=== PATIENT | female | born 1990 | race Asian ===

== ENCOUNTER 2022-03-16 08:16 | Inpatient (IN) ==
[2022-03-16] MEDS ORDERED: OXYTOCIN 30 UNITS/500 ML BAG IV PRN ×2 (08:57→13:16)
[2022-03-16] MEDS ORDERED: LIDOCAINE 1% LOCAL 20 ML VIAL INFIL PRN (08:57)
--- NOTE | 2022-03-16 09:03 | History & Physical Report ---
Date of Service March 16, 2022 Assessment & Plan (1) Gestational diabetes mellitus (GDM) affecting , antepartum: (2) Normal labor: Plan Plan admission, desires epidural. fetus category one. likely will need arom. anticipate . History of Present Illness Primary Care Provider: NO PCP Patient is a 31yowf with iup at 40 1/7 weeks who presents to labor and delivery from contractions at 3am. Some light bleeding, no lof. NOtes +fm and Delivery Plans Flu shot given 12/21/21 SB Covid booster in Jan GDM w/28wk glucola *Begin monthly Growth US's 03/20 IOL if needed OB Labs: Blood Type O Positive 08/08/21 Antibody Screen NEGATIVE 08/08/21 Hemoglobin 12.0 g/dl (12.0-16.0) 12/21/21 Hematocrit 36.0 % (34.1-44.9) 12/21/21 Mean Corpuscular Volume 92.9 fL (80-100) 08/08/21 Platelet Count 282 K/uL (130-400) 08/08/21 Rubella IgG Antibody Immune (Immune) 08/08/21 Rapid Plasma Reagin Nonreactive (Nonreactive) 08/08/21 Hepatitis B Surface Antigen. NON-REACTIVE (NON-REACTIVE) 08/08/21 Hepatitis C Antibody (EIA) NON-REACTIVE (NON-REACTIVE) 08/08/21 HIV (1&2) Ag and Ab Confirmation NON-REACTIVE (NON-REACTIVE) 08/08/21 Glucose 1 Hour 50 gm Load 174 mg/dl (70-130) H 12/21/21 OB Optional Labs: Chlamydia trachomatis RNA NOT DETECTED (NOT DETECTED) 08/08/21 A Neisseria gonorrhoeae RNA NOT DETECTED (NOT DETECTED) 08/08/21 Labs Reviewed: low risk panorama declined afp gbs neg Allergies Allergy/AdvReac Type Severity Reaction Status Date / Time No Known Allergies Allergy Verified 03/14/22 11:24 Home Medications Medication Instructions Recorded Confirmed Type prenat.vits,thong,vye-ryvu-ovvnm 1 tab PO DAILY 07/28/21 03/16/22 History acetone (urine) test (Ketone Urine #50 ea 12/28/21 03/14/22 Rx Test strips) blood sugar diagnostic (OneTouch #150 ea 12/28/21 03/14/22 Rx Verio test strips) blood-glucose meter (OneTouch #1 ea 12/28/21 03/14/22 Rx Verio Reflect Meter) lancets 33 gauge (OneTouch Delica #150 ea 12/28/21 03/14/22 Rx Lancets) Patient History Medical History Diabetes mellitus affecting Diet controlled. Patient denies significant medical history Surgical History No history of previous surgery Family History Denies family history of Ovarian cancer Breast cancer Colorectal cancer Social History Smoking Status: Never smoker marital status: marital status details: Aric Cisse (35) [phone] Current Living Situation: Spouse and Family Current Living Situation Comment: lives with spouse, daughter current occupational status: unemployed current occupation: homemaker OB History Past Pregnancies Del. Date GA wks Lbr Lgth wt Sex Type del Anes Place Del Prov ? Comment 06/09/19 41 12 8-4 F None Other [place] No [employer] History noncontributory Physical Exam Constitutional: WD/WN, vitals as above Cardiovascular: Extremities: no calf tenderness and no edema Gastrointestinal (Abdomen): soft, nt, nd, gravid Psychiatric: A+Ox3, euthymic affect Genitourinary: cx--5/100/-2 toco--q5-6min efm--120 with mod variability, no accels, no decels Results & Data ([facility]) Vital Signs (Past 12 Hours) Vital Signs Temp Pulse Resp BP 03/16/22 08:23 16 03/16/22 08:23 36.8 C 83 16 121/74 03/16/22 08:22 83 121/74 Coding Level of Care Code None Diagnoses Gestational diabetes mellitus (GDM) affecting , antepartum O24.419 Normal labor O80; Z37.9
[2022-03-16] MEDS: LACTATED RINGER'S 1,000 ML IV PRN ×2 (09:15→10:54)
[2022-03-16 09:49] LABS: Hemoglobin 11.9 g/dl (12.0-16.0); Mean Corpuscular Volume 94.1 fL (80.0-100.0); Mean Platelet Volume 9.3 fL (9.4-12.3); Platelet Count 212 K/uL (130-400); RDW Coefficient of Variation 12.7 % (11.5-14.5); RDW Standard Deviation 43.7 fL (36.4-46.3); Red Blood Count 3.72 M/uL (3.93-5.22); White Blood Count 9.24 K/ul (4.8-10.8)
[2022-03-16] MEDS ORDERED: ePHEDrine sulfate 50 MG/ML AMP ONE (09:49)
[2022-03-16] MEDS ORDERED: SODIUM CHLORIDE 0.9% INJ 10 ML VIAL ONE (09:50)
[2022-03-16] MEDS ORDERED: BUPIVACAINE 0.25% 30 ML VIAL ONE (09:50)
[2022-03-16] MEDS ORDERED: LIDOCAINE 2%/EPINEPHRINE 1:200,000 20 ML SDV ONE (09:50)
[2022-03-16] MEDS ORDERED: fentaNYL citrate 100 MCG/2 ML VIAL ONE (09:50)
[2022-03-16] MEDS ORDERED: fentaNYL 2MCG/ML ROPIVACAINE 1.25MG/ML 100 ML BAG EPI ONE (09:51)
[2022-03-16] MEDS ORDERED: ePHEDrine sulfate 50 MG/ML AMP IV PRN (10:04)
[2022-03-16] MEDS ORDERED: diphenhydrAMINE 50 MG/ML VIAL IV PRN (10:04)
[2022-03-16] MEDS ORDERED: fentaNYL 2MCG/ML ROPIVACAINE 1.25MG/ML 100 ML BAG EPI PRN (10:04)
[2022-03-16] MEDS ORDERED: NALBUPHINE HCL INJ 10 MG/ML AMP IV PRN (10:04)
[2022-03-16] MEDS ORDERED: ONDANSETRON INJ 2 MG/ML 2 ML VIAL IV PRN (10:04)
[2022-03-16] MEDS ORDERED: NALOXONE HCL 0.4 MG/1 ML VIAL/CARP IV PRN (10:04)
[2022-03-16] MEDS ORDERED: NALOXONE HCL 1 MG in SODIUM CHLORIDE 0.9% 1000ML 1,000 ML IV PRN (10:04)
--- NOTE | 2022-03-16 10:04 | Anesthesiology Consultation ---
Date of Service March 16, 2022 Assessment & Plan ASA ASA2 Proposed Anesthesia Anesthesia Type: Labor Epidural Risk / Benefits Reviewed With: PT / POA / Parent / Guardian, Accepts Plan and Informed Consent Obtained History Height/Weight Height: 5 ft 0.06 in Weight: 65.317 kg Allergies Allergy/AdvReac Type Severity Reaction Status Date / Time No Known Allergies Allergy Verified 03/14/22 11:24 Medications Home Medications Medication Instructions Recorded Confirmed Last Taken prenat.vits,thong,sks-kbhy-dbwev 1 tab PO DAILY 07/28/21 03/16/22 03/16/22 07:00 acetone (urine) test (Ketone Urine #50 ea 12/28/21 03/14/22 Unknown Test strips) blood sugar diagnostic (OneTouch #150 ea 12/28/21 03/14/22 Unknown Verio test strips) blood-glucose meter (OneTouch #1 ea 12/28/21 03/14/22 Unknown Verio Reflect Meter) lancets 33 gauge (OneTouch Delica #150 ea 12/28/21 03/14/22 Unknown Lancets) Active Medications Generic Name Dose Route Start Last Admin Trade Name Freq PRN Reason Stop Dose Admin Lactated Ringer's 1,000 mls @ 125 mls/hr 03/16/22 08:57 03/16/22 10:54 Lr IV 03/18/22 08:56 999 mls/hr .Q8H PRN Administration L&D Protocol Protocol Past Medical History Medical History Diabetes mellitus affecting Diet controlled. Patient denies significant medical history Exercise / Class Metabolic Activity II 4-5 Yardwork/Stairs/Walk up hill Past Family History Family History Denies family history of Ovarian cancer Breast cancer Colorectal cancer Past Surgical History Surgical History No history of previous surgery Past Anesthesia History No Hx of Anesthesia Complications and No Family Hx of Anesthesia Complications History of PONV No Hx of PONV and No Hx of Motion Sickness Social History Smoking Status: Never smoker Hx Alcohol Use: No Hx Substance Use: No substance use type: does not use Review of Systems denies fever/cough/ colds/ chest pain/ SOB/ PADMINI denies PADMINI Physical Exam Vital Signs Last Vital Signs Temp 36.8 C 03/16/22 09:10 Pulse 63 03/16/22 11:43 Resp 16 03/16/22 09:10 BP 93/59 L 03/16/22 11:35 Pulse Ox 99 03/16/22 11:43 ENMT Mouth: no TMJ abnormality and no dentition abnormality Thyromental Distance: > or= 3.5 Finger Breadths Mallampati Class: II Neck neck extension not limited Respiratory normal respiratory effort; no respiratory distress Auscultation: lungs clear to auscultation bilaterally Cardiovascular Rate/Rhythm: regular rate and regular rhythm Neurologic moves all extremities Psychiatric Orientation: alert and oriented x 3 Testing Laboratory Results 03/16/22 09:14 03/16/22 11:20 POC Glucose 86
--- NOTE | 2022-03-16 12:15 | Labor Progress Brief Note ---
Date of Service March 16, 2022 Subjective comfortable Assessment & Plan (1) Normal labor: Plan Will labor down and then begin pushing. fetus reassuring. anticipate . Admission and Anticipated Discharge Date Admission Date: March 16, 2022 Physical Exam Physical Exam: cx--bloody show, c/c/+1 arom--clear toco--q3-4min efm--125 with mod variabiltiy, no accels, no decels Results & Data ([facility]) Vital Signs (Past 12 Hours) Vital Signs Temp Pulse Resp BP Pulse Ox 03/16/22 09:10 36.8 C 83 16 121/74 03/16/22 12:09 103 H 100 03/16/22 12:04 82 100 03/16/22 12:05 90 97/60 L 03/16/22 11:59 80 100 03/16/22 11:54 65 100 03/16/22 11:49 85 100 03/16/22 11:43 63 99 03/16/22 11:37 71 100 03/16/22 11:35 82 93/59 L 03/16/22 11:32 97 H 100 03/16/22 11:27 76 100 03/16/22 11:22 79 99 03/16/22 11:17 65 100 03/16/22 11:18 82 98/58 L 03/16/22 11:13 66 100 03/16/22 11:08 77 100 03/16/22 11:03 85 102/58 L 100 03/16/22 10:58 73 99 03/16/22 10:53 83 99 03/16/22 10:47 86 99 03/16/22 10:45 86 106/62 03/16/22 10:42 88 97 03/16/22 10:41 89 94 03/16/22 10:40 88 99/62 L 03/16/22 10:38 88 100 03/16/22 10:35 80 119/68 03/16/22 10:33 97 H 100 03/16/22 10:28 100 H 93 03/16/22 10:23 86 100 03/16/22 10:18 98 H 90 03/16/22 10:16 91 H 93 03/16/22 10:12 93 H 100 03/16/22 10:08 92 03/16/22 10:08 88 03/16/22 10:08 88 97 03/16/22 08:23 16 03/16/22 08:23 36.8 C 83 16 121/74 03/16/22 08:22 83 121/74 Coding Level of Care Code None Diagnoses Normal labor O80; Z37.9
[2022-03-16] MEDS ORDERED: HYDROCORTISONE ACETATE 25 MG SUPP PR PRN (13:16)
[2022-03-16] MEDS ORDERED: DIPHTHERIA/TETANUS/PERTUSSIS 0.5 ML SYR/VIAL IM ONE (13:16)
[2022-03-16] MEDS ORDERED: ACETAMINOPHEN 325 MG TAB PO PRN (13:16)
[2022-03-16] MEDS ORDERED: oxyCODONE/ACETAMINOPHEN 5mg/325mg TAB PO PRN (13:16)
[2022-03-16] MEDS ORDERED: bisacodyL 10 MG SUPP PR PRN (13:16)
[2022-03-16] MEDS ORDERED: BENZOCAINE 20% AER SPR 82.5 GM CAN EXT PRN (13:16)
--- NOTE | 2022-03-16 13:20 | Delivery Summary ---
Vaginal Delivery Summary Date of Service March 16, 2022 Vaginal Delivery Summary and 2nd Degree LAC Pre-operative Diagnosis: at 39 weeks labor Post-operative Diagnosis: same Procedure: epidural arom second degree laceration and repair EBL: 300cc Anesthesia: epidural Procedure: The patient presented to labor and delivery in active labor. Admitted, got epidural and progressed to c/c/+1. arom for clear fluid. The patient pushed for one contraction to deliver a viable male infant in adalberto position. There was a tight nuchal cord that was clamped and cut on the perineum. The nose and mouth were bulb suctioned on the perineum and the rest o f the infant was then delivered without difficulty. The baby was vigorous. The nose and mouth were again bulb suctioned and the infant was placed in the maternal abdomen for drying and attention. Cord blood and segment obtained. Placenta delivered spontaneous, intact with a three vessel cord. Cervix/sulci/rectum were intact. A second degree perineal laceration was repaired in the normal standard fashion. Hemostasis obtained with dilute pitocin and fundal massage. Apgars were 8/9. Mother and baby doing well at the end of the delivery. [facility] Vaginal Delivery Charge Delivery Type Details: and 2nd Degree LAC
--- NOTE | 2022-03-16 13:29 | Anesthesia Procedure Note ---
Date of Service March 16, 2022 Anesthesia Post Epidural Note Vital Signs Vital Signs: Temp Pulse Resp BP Pulse Ox 36.7 C 93 H 16 122/63 100 03/16/22 12:15 03/16/22 13:24 03/16/22 12:15 03/16/22 13:20 03/16/22 13:24 Notes Mental Status: alert / awake / arousable and participated in evaluation Patient Amnestic to Procedure: No Nausea / Vomiting: adequately controlled Pain: adequately controlled Airway Patency, RR, SpO2: stable & adequate BP & HR: stable & adequate Hydration State: stable & adequate Neuraxial Anesthesia: was administered and sensory block is resolving Anesthetic Complications: no major complications apparent and Pt Satisfied with anesthetic care Epidural: Removed without complications and With tip intact
[2022-03-16] MEDS: DOCUSATE SODIUM 100 MG CAP PO SCH (21:39)
[2022-03-17] MEDS: IBUPROFEN 600 MG TAB PO PRN ×2 (03:40→07:45)
--- NOTE | 2022-03-17 07:10 | Obstetrical Progress Note ---
Date of Service <Milan Mathis DO - Last Filed: 03/17/22 07:42> March 17, 2022 Assessment & Plan <Milan Mathis DO - Last Filed: 03/17/22 07:42> (1) Status post vaginal delivery: - Feels well today. Eating well, voiding well, ambulating well. - Pain well controlled with ibuprofen 600mg Q4H PRN - Routine care -- OOB, ambulation, diet progression as tolerated - After discharge will have 6 week follow-up with Dr. Gauthier. - Wishes to be D/C today <Jake Echevarria MD, FACOG - Last Filed: 03/17/22 07:45> (1) Status post vaginal delivery: Subjective <Milan Mathis DO - Last Filed: 03/17/22 07:42> Patient is a 31 y/o female who is now PPD # 1 following spontaneous vaginal delivery at 40 weeks. Reports feeling well overall this morning. Mild abdominal cramping & 3/10 pain well managed on analgesics. Voiding well. Tolerating meals overnight and able to ambulate some. Able to pass gas. Has some persistent lochia with some improvement this morning. Currently breast feeding. Review of Systems Denies fever, chills, sweats Denies shortness of breath, difficulty breathing, chest pain, palpitations, chest pressure. Denies breast pain. Denies dysuria. Denies headache or changes in vision. Physical Exam <Milan Mathis DO - Last Filed: 03/17/22 07:42> General: Alert, oriented. No acute distress. Cardiac: Regular rate and rhythm, no murmurs/rubs/gallops. Respiratory: Clear to auscultation bilaterally a/p, no wheezes/rales/rhonchi. No increased work of breathing. Symmetrical chest rise. No respiratory distress. Abdomen: Soft, nontender, nondistended. Bowel sounds present. Uterus: Uterine fundus firm, palpable 2 cm below umbilicus. Lower Extremities: No lower extremity edema or swelling. No deep calf pain. Janey's negative bilaterally. Results & Data ([facility]) <Milan Mathis - Last Filed: 03/17/22 07:42> Vital Signs (Past 12 Hours) Vital Signs Temp Pulse Resp BP Pulse Ox O2 Del Method 03/17/22 04:00 36.4 C L 77 18 111/72 Room Air 03/16/22 23:14 36.5 C 72 16 99/66 L 97 Room Air 03/16/22 20:00 36.6 C 80 18 108/73 Room Air <Jake Echevarria MD, FACOG - Last Filed: 03/17/22 07:45> Co-Signing Physician Notes Resident Physician Supervision Note: I was present with Dr. Mathis during the history and exam. I discussed the case with the resident and agree with the findings and plan as documented in the note. Any exceptions or clarifications are listed here: [None] Documented By: Jake Echevarria MD, FACOG Resident Activity Tracking <Milan Mathis DO - Last Filed: 03/17/22 07:42> Resident Involvement: Resident Care Provided Care Provided: OB Delivery
[2022-03-17] MEDS: DOCUSATE SODIUM 100 MG CAP PO SCH (07:45)
[2022-03-17] MEDS ORDERED: PRENATAL VITAMIN 1 TAB PO SCH (08:00)
[2022-03-17 08:06] LABS: Hematocrit (blood only) 34.2 % (34.1-44.9); Hemoglobin 11.8 g/dl (12.0-16.0)
[2022-03-17] MEDS ORDERED: bisacodyL 5 MG TABEC PO SCH (20:00)
== END 2022-03-17 16:15 | disposition home or self-care (01) | DRG 807 ==
LOC: OPB 08:16 → 4S1 08:17 → 4E2 16:41